=== PATIENT | male | born 2000 ===

== ENCOUNTER 2021-09-29 18:19 | Emergency (ER) | payer SELFPAY ==
[~2021-09-29] VITALS: Ht 172.7 cm; Wt 88.5 kg
[2021-09-29 20:46] VITALS: BP 125/70
[2021-09-29 21:37] LABS: Basophils # (auto) 0 10 ^3/uL (0-0.2); Basophils % (auto) 0.3 % (0.0-2.0); Eosinophils # (auto) 0 10 ^3/uL (0-0.8); Eosinophils % (auto) 0.1 % (0.0-7.0); Hematocrit 45.3 % (41.0-53.0); Hemoglobin 15.5 g/dL (13.5-17.5); Lymphocytes # (auto) 0.7 10 ^3/uL (0.4-5.4); Mean Corpuscular Hemoglobin 31.1 pg (28.0-32.0); Mean Corpuscular Hgb Conc. 34.2 g/dL (32.0-36.0); Monocytes # (auto) 0.9 10 ^3/uL (0-1.3); Monocytes % (auto) 17.4 % (0.0-12.0); Neutrophils # (auto) 3.5 10 ^3/uL (1.6-8.6); Neutrophils % (auto) 69.2 % (37.0-80.0); Red Blood Cells 4.97 10^6/uL (4.5-5.90); Red Cell Distribution Width 12.6 % (11.8-14.3)
== END 2021-09-30 00:32 | disposition home or self-care (01) ==
LOC: ER 18:19
DX: U07.1 COVID-19 (principal); J03.90 Acute tonsillitis, unspecified; J20.9 Acute bronchitis, unspecified
CPT/HCPCS: 36415; 71046; 85025; 87426

== ENCOUNTER 2022-02-21 14:10 | Emergency (ER) | payer SELFPAY ==
[~2022-02-21] VITALS: Ht 172.7 cm; Wt 88.5 kg
[2022-02-21 15:00] VITALS: BP 118/58
[2022-02-21] MEDS ORDERED: ACET-1158 PO (17:49)
[2022-02-21] MEDS ORDERED: OSEL75CA5 PO (17:49)
== END 2022-02-21 17:54 | disposition home or self-care (01) ==
LOC: ER 14:10
DX: J10.1 Influenza due to other identified influenza virus with other respiratory manifestations (principal); Z20.822 Contact with and (suspected) exposure to COVID-19
CPT/HCPCS: 36415; 71045; 87804